=== PATIENT | male | born 1985 | race Caucasian/White ===

== ENCOUNTER 2019-07-11 09:04 | Emergency (ER) | payer MEDICAID ==
[~2019-07-11] VITALS: Ht 180.3 cm; Wt 104.3 kg
[~2019-07-11 09:04] MED LIST: OLAN5TAB6 PO; Sertraline Hcl PO
--- NOTE | 2019-07-11 09:12 | NUR ---
Dr Payne at the bedside for MSE.
[2019-07-11] MEDS ORDERED: KETOROLAC TROMETHAMINE 30 MG INJ ONE (09:20)
[2019-07-11] MEDS: KETOROLAC TROMETHAMINE 30 MG INJ IM ONE (09:20)
--- NOTE | 2019-07-11 09:24 | NUR ---
Patient eloped from facility. ER physician notified.
== END 2019-07-11 09:25 | disposition left against medical advice (07) ==
LOC: ER 09:04
DX: M54.5 Low back pain (principal); F32.9 Major depressive disorder, single episode, unspecified; F41.9 Anxiety disorder, unspecified; R45.851 Suicidal ideations; F17.290 Nicotine dependence, other tobacco product, uncomplicated; Z88.0 Allergy status to penicillin; Z79.899 Other long term (current) drug therapy; W10.9XXA Fall (on) (from) unspecified stairs and steps, initial encounter; Y93.89 Activity, other specified; Y92.89 Other specified places as the place of occurrence of the external cause; Y99.8 Other external cause status
CPT/HCPCS: 96372; 99283; 99406; J1885; A4663

== ENCOUNTER 2021-07-16 11:43 | Emergency (ER) | payer MEDICAID ==
[~2021-07-16] VITALS: Ht 180.3 cm; Wt 81.6 kg
--- NOTE | 2021-07-16 12:05 | NUR ---
[email or web address], medical screening exam in progress
[2021-07-16] MEDS ORDERED: IV NORMAL SALINE 1000 ML BAG IV ONE (12:30)
[2021-07-16] MEDS ORDERED: ONDANSETRON 4 MG/2 ML VIAL IV ONE (12:30)
[2021-07-16] MEDS ORDERED: HYDROCODONE/APAP 10-325 MG TABLET PO ONE (12:30)
[2021-07-16] MEDS ORDERED: HYDROCODONE/APAP 10-325 MG TABLET ONE (12:34)
[2021-07-16] MEDS ORDERED: ONDANSETRON 4 MG/2 ML VIAL ONE (12:34)
[2021-07-16 13:03] LABS: HEMATOCRIT 43.9 % (36.7-47.1); MEAN CORPUSCULAR HEMOGLOBIN 28.1 uug (23.8-33.4); MEAN CORPUSCULAR VOLUME 83.9 fL (73.0-96.2); PLATELET COUNT (AUTO) 386 K/uL (152-348)
[2021-07-16 13:04] LABS: *BILIRUBIN,URIN NEGATIVE (NEGATIVE); *BLOOD, URINE NEGATIVE (NEGATIVE); *CLARITY,URINE CLEAR (CLEAR); *COLOR,URINE YELLOW (YELLOW); *KETONES,URINE NEGATIVE (NEGATIVE); *UROBILINOGEN,URINE 0.2 E.U./dl (NORMAL); LEUKOCYTE ESTERASE ,URINE NEGATIVE (NEGATIVE); NITRITE, URINE NEGATIVE (NEGATIVE); PH,URINE 7.5 (5.0-8.0); UGLUCOSE NEGATIVE (NEGATIVE)
[2021-07-16 13:19] LABS: CARBON DIOXIDE 23 mmol/L (21-32); CHLORIDE 105 mmol/L (98-107); CREATININE 0.8 mg/dL (0.6-1.3); GLUCOSE 110 mg/dL (74-106); POTASSIUM 4.5 mmol/L (3.5-5.1); UREA NITROGEN, BLOOD 7 mg/dL (7-18)
[2021-07-16 13:23] LABS: ALANINE AMINOTRANSFERASE 28 U/L (16-63); ALKALINE PHOSPHATASE 84 U/L (50-136); ASPARTATE AMINOTRANSFERASE 20 U/L (15-37); BILIRUBIN,DIRECT < 0.1 mg/dL (0.0-0.2); BILIRUBIN,TOTAL 0.2 mg/dL (0.2-1.0); TOTAL PROTEIN, SERUM 7.6 g/dL (6.4-8.2)
--- NOTE | 2021-07-16 13:26 | NUR ---
Patient does not wish to proceed with medical care recommended by Dr. Brigid thurman ). Patient given information related to possible complications, up to and including , which could occur as a result of leaving the hospital at this time. Patient verbalizes understanding of risks involved due to leaving against medical advice. Patient has signed AMA form. pt's father here to package pick up the pt.
== END 2021-07-16 13:27 | disposition left against medical advice (07) ==
LOC: ER 11:43
DX: R51.9 Headache, unspecified (principal); M54.9 Dorsalgia, unspecified; F25.9 Schizoaffective disorder, unspecified; Z87.09 Personal history of other diseases of the respiratory system; Z88.0 Allergy status to penicillin; D75.839 Thrombocytosis, unspecified; Z20.822 Contact with and (suspected) exposure to COVID-19; Z53.29 Procedure and treatment not carried out because of patient's decision for other reasons
CPT/HCPCS: 36415; 70450; 71045; 80048; 80076; 81003; 85025; 85730; 87426; 93005; 96361; 96374; 99285; J2405; A4663; J7030

== ENCOUNTER 2025-06-28 20:21 | Emergency (ER) | payer MEDICAID ==
[~2025-06-28 20:21] MED LIST changes: +BENZ0.5T43 PO; +DIVA-78 PO; +QUET300T2 PO; +TRAM100C3 PO; +TRAM50TA2 PO
== END 2025-06-28 21:30 | disposition left against medical advice (07) ==
LOC: ER 21:24
DX: Z53.21 Procedure and treatment not carried out due to patient leaving prior to being seen by health care provider (principal)